=== PATIENT | female | born 1985 | race Hispanic/Latino ===

== ENCOUNTER → 2017-09-28 | Outpatient (CLI) | payer OTHER ==
[~2017-09-28] MED LIST: IBUP-2071 PO
== END | disposition home or self-care (01) ==
LOC: RAH 17:08
PROVIDERS: ATTEND Family Medicine
DX: Z02.71 Encounter for disability determination (principal)
CPT/HCPCS: 73120

== ENCOUNTER 2018-06-03 04:24 | Emergency (ER) | payer OTHER | END 2018-06-03 04:51 | disposition home or self-care (01) | LOC: EDH 04:24 | DX: Z02.89 Encounter for other administrative examinations (principal); F31.9 Bipolar disorder, unspecified; F43.10 Post-traumatic stress disorder, unspecified; Z90.49 Acquired absence of other specified parts of digestive tract; Z98.890 Other specified postprocedural states ==